=== PATIENT | female | born 1950 | race Caucasian/White ===

== ENCOUNTER → 2016-10-13 | Outpatient (CLI) | payer OTHER | LOC: HYPER 07:00 | DX: I87.2 Venous insufficiency (chronic) (peripheral) (principal); L97.311 Non-pressure chronic ulcer of right ankle limited to breakdown of skin; L97.321 Non-pressure chronic ulcer of left ankle limited to breakdown of skin; L03.90 Cellulitis, unspecified; L30.9 Dermatitis, unspecified; J45.909 Unspecified asthma, uncomplicated; R60.9 Edema, unspecified; M19.90 Unspecified osteoarthritis, unspecified site; F41.9 Anxiety disorder, unspecified; F32.9 Major depressive disorder, single episode, unspecified; Z87.891 Personal history of nicotine dependence ==

== ENCOUNTER → 2017-12-15 | Outpatient (CLI) | payer OTHER | LOC: HYPER 10-19 11:36 | DX: L97.811 Non-pressure chronic ulcer of other part of right lower leg limited to breakdown of skin (principal); L03.90 Cellulitis, unspecified; L30.9 Dermatitis, unspecified; I87.2 Venous insufficiency (chronic) (peripheral); M19.90 Unspecified osteoarthritis, unspecified site; Q05.9 Spina bifida, unspecified; J45.909 Unspecified asthma, uncomplicated; F41.9 Anxiety disorder, unspecified; Z87.891 Personal history of nicotine dependence ==

== ENCOUNTER → 2018-01-12 | Outpatient (CLI) | payer OTHER | LOC: HYPER 07:04 | DX: L97.821 Non-pressure chronic ulcer of other part of left lower leg limited to breakdown of skin (principal); I87.2 Venous insufficiency (chronic) (peripheral); L30.9 Dermatitis, unspecified; L40.50 Arthropathic psoriasis, unspecified; M19.90 Unspecified osteoarthritis, unspecified site; Q05.9 Spina bifida, unspecified; J45.909 Unspecified asthma, uncomplicated; F41.9 Anxiety disorder, unspecified; F32.9 Major depressive disorder, single episode, unspecified; Z87.891 Personal history of nicotine dependence ==

== ENCOUNTER → 2018-04-03 | Outpatient (CLI) | payer OTHER | LOC: HYPER 06:57 | DX: L97.821 Non-pressure chronic ulcer of other part of left lower leg limited to breakdown of skin (principal); R21 Rash and other nonspecific skin eruption; L03.116 Cellulitis of left lower limb; L30.9 Dermatitis, unspecified; L40.50 Arthropathic psoriasis, unspecified; I87.2 Venous insufficiency (chronic) (peripheral); G47.33 Obstructive sleep apnea (adult) (pediatric); G71.00 Muscular dystrophy, unspecified; J45.909 Unspecified asthma, uncomplicated; Q05.9 Spina bifida, unspecified; M19.90 Unspecified osteoarthritis, unspecified site; K21.9 Gastro-esophageal reflux disease without esophagitis; F41.9 Anxiety disorder, unspecified; F32.9 Major depressive disorder, single episode, unspecified; Z87.891 Personal history of nicotine dependence; Z96.643 Presence of artificial hip joint, bilateral ==

== ENCOUNTER → 2018-10-23 | Outpatient (CLI) | payer OTHER | LOC: HYPER 06:41 | DX: L97.811 Non-pressure chronic ulcer of other part of right lower leg limited to breakdown of skin (principal); I87.2 Venous insufficiency (chronic) (peripheral); L03.116 Cellulitis of left lower limb; L30.9 Dermatitis, unspecified; G47.30 Sleep apnea, unspecified; M19.90 Unspecified osteoarthritis, unspecified site; R21 Rash and other nonspecific skin eruption; Q05.9 Spina bifida, unspecified; J45.909 Unspecified asthma, uncomplicated; F41.9 Anxiety disorder, unspecified; F32.9 Major depressive disorder, single episode, unspecified; Z87.891 Personal history of nicotine dependence ==

== ENCOUNTER → 2019-04-19 | Outpatient (CLI) | payer OTHER | LOC: HYPER 10-31 07:02 | DX: L97.821 Non-pressure chronic ulcer of other part of left lower leg limited to breakdown of skin (principal); I87.2 Venous insufficiency (chronic) (peripheral); R21 Rash and other nonspecific skin eruption; L40.8 Other psoriasis; L03.116 Cellulitis of left lower limb; L30.9 Dermatitis, unspecified; G47.30 Sleep apnea, unspecified; D64.9 Anemia, unspecified; M19.90 Unspecified osteoarthritis, unspecified site; Q05.9 Spina bifida, unspecified; J45.909 Unspecified asthma, uncomplicated; F41.9 Anxiety disorder, unspecified; F32.9 Major depressive disorder, single episode, unspecified; Z87.891 Personal history of nicotine dependence ==

== ENCOUNTER → 2019-05-17 | Outpatient (CLI) | payer OTHER | LOC: HYPER 07:17 | DX: S81.802D Unspecified open wound, left lower leg, subsequent encounter (principal); L40.8 Other psoriasis; L03.116 Cellulitis of left lower limb; L30.9 Dermatitis, unspecified; I87.2 Venous insufficiency (chronic) (peripheral); Q05.9 Spina bifida, unspecified; R21 Rash and other nonspecific skin eruption; J45.909 Unspecified asthma, uncomplicated; G47.33 Obstructive sleep apnea (adult) (pediatric); M19.90 Unspecified osteoarthritis, unspecified site; F41.9 Anxiety disorder, unspecified; F32.9 Major depressive disorder, single episode, unspecified; Z87.891 Personal history of nicotine dependence; X58.XXXD Exposure to other specified factors, subsequent encounter ==

== ENCOUNTER → 2019-06-12 | Outpatient (CLI) | payer OTHER | LOC: HYPER 06-07 16:51 | DX: L97.822 Non-pressure chronic ulcer of other part of left lower leg with fat layer exposed (principal); L97.321 Non-pressure chronic ulcer of left ankle limited to breakdown of skin; I87.2 Venous insufficiency (chronic) (peripheral); L03.116 Cellulitis of left lower limb; L30.9 Dermatitis, unspecified; L40.50 Arthropathic psoriasis, unspecified; K58.9 Irritable bowel syndrome, unspecified; F32.9 Major depressive disorder, single episode, unspecified; G47.33 Obstructive sleep apnea (adult) (pediatric); J45.909 Unspecified asthma, uncomplicated; F41.9 Anxiety disorder, unspecified; Z96.643 Presence of artificial hip joint, bilateral; Z87.891 Personal history of nicotine dependence ==

== ENCOUNTER → 2019-06-21 | Outpatient (CLI) | payer OTHER | LOC: HYPER 14:19 | DX: L97.822 Non-pressure chronic ulcer of other part of left lower leg with fat layer exposed (principal); L03.116 Cellulitis of left lower limb; S81.802D Unspecified open wound, left lower leg, subsequent encounter; I87.2 Venous insufficiency (chronic) (peripheral); L40.8 Other psoriasis; L30.9 Dermatitis, unspecified; L40.50 Arthropathic psoriasis, unspecified; R60.0 Localized edema; G47.33 Obstructive sleep apnea (adult) (pediatric); G71.00 Muscular dystrophy, unspecified; Q05.9 Spina bifida, unspecified; J45.909 Unspecified asthma, uncomplicated; M48.00 Spinal stenosis, site unspecified; K21.9 Gastro-esophageal reflux disease without esophagitis; F32.9 Major depressive disorder, single episode, unspecified; F41.9 Anxiety disorder, unspecified; Z87.891 Personal history of nicotine dependence; X58.XXXD Exposure to other specified factors, subsequent encounter ==

== ENCOUNTER → 2019-07-03 | Outpatient (CLI) | payer OTHER | LOC: HYPER 11:37 | DX: L97.822 Non-pressure chronic ulcer of other part of left lower leg with fat layer exposed (principal); I87.2 Venous insufficiency (chronic) (peripheral); L30.9 Dermatitis, unspecified; J45.909 Unspecified asthma, uncomplicated; M19.90 Unspecified osteoarthritis, unspecified site; L40.50 Arthropathic psoriasis, unspecified; F32.9 Major depressive disorder, single episode, unspecified; F41.9 Anxiety disorder, unspecified; Z87.891 Personal history of nicotine dependence; Z79.82 Long term (current) use of aspirin ==

== ENCOUNTER → 2019-08-09 | Outpatient (CLI) | payer OTHER | LOC: HYPER 11:57 | DX: L97.822 Non-pressure chronic ulcer of other part of left lower leg with fat layer exposed (principal); L03.116 Cellulitis of left lower limb; S81.802D Unspecified open wound, left lower leg, subsequent encounter; I87.2 Venous insufficiency (chronic) (peripheral); L40.50 Arthropathic psoriasis, unspecified; L30.9 Dermatitis, unspecified; M51.36 Other intervertebral disc degeneration, lumbar region; J45.909 Unspecified asthma, uncomplicated; M48.00 Spinal stenosis, site unspecified; K58.9 Irritable bowel syndrome, unspecified; G47.33 Obstructive sleep apnea (adult) (pediatric); Q05.9 Spina bifida, unspecified; F41.9 Anxiety disorder, unspecified; F32.9 Major depressive disorder, single episode, unspecified; Z85.831 Personal history of malignant neoplasm of soft tissue; Z79.82 Long term (current) use of aspirin; Z96.643 Presence of artificial hip joint, bilateral; Z87.891 Personal history of nicotine dependence; X58.XXXD Exposure to other specified factors, subsequent encounter ==

== ENCOUNTER 2020-05-29 19:03 | Inpatient (IN) | payer OTHER ==
[~2020-05-29] VITALS: Ht 167.6 cm; Wt 62.5 kg
--- NOTE | ~2020-05-29 | HC ---
[facility] [place] [address] CONSULTATION Name: ROSE TRINIDAD Room #: 462-P ADM IN M.R.#: [id number] Admission: 05/29/20 Attend Phys: Karen Jeong MD Discharge: Date of : 52 Report #: [id number] THIS REPORT FOR: cc: Benny Adame MD, Steven E. MD Khosla,aJyden Sheffield MD ~ DATE OF SERVICE: 05/30/2020 HISTORY OF PRESENT ILLNESS: This is a 69-year-old female patient who was evaluated by me because of altered mental status and ambulation difficulty. The patient's gives a history that the patient started having short-term memory loss. He is not sure about the duration, but it started several months or maybe a few years ago. She saw a neurologist at [facility]. He does not believe that she had an MRI, but she was recommended to have neuropsychological testing, but the patient did not go for neuropsychological testing. He believes about a few days ago, the patient started deteriorating. Her memory has gone down. She has difficulty with ambulation. Later on, her strength looks unremarkable, but she appeared to have pretty significant difficulty ambulating according to the . REVIEW OF SYSTEMS: Indicate she is a mild diabetic. She has a chronic pain syndrome. She apparently has a history of neuropathy and neurogenic bladder. She has been falling down. did not think that this patient had any new eye, ENT, cardiac, respiratory, , musculoskeletal, constitutional, dermatological, hematological, psychiatric, throat, allergic symptom associated with present symptomatology. PAST MEDICAL HISTORY: Positive for memory problem, which is going on for some time. FAMILY HISTORY: Unremarkable. SOCIAL HISTORY: The tells me that she was never a smoker or drinker. She does not know what month it is. She finally said it is [place]. She could not name of the president. Cranial nerve examination is very difficult to carry out because of her confusion, but she does not appear to be showing any abnormality the best I can tell. She moves all four extremities and when she gives a good effort, it looks like she has a good strength. She keeps moving both lower extremities and she will not lay still. Her reflexes are absent. Sensory system examination was impossible because she could not cooperate. There is no meningeal sign. I could not look at the fundus because she will not cooperate. Pulses are somewhat difficult to feel. Reflexes are absent in the lower extremities. Sensory system examination was not possible because of the patient's cooperation. Similarly cerebellar signs could not be checked because [facility] [address] [place] [address] CONSULTATION Name: ROES TRINIDAD Room #: 462-P [facility] IN M.R.#: [id number] Admission: 05/29/20 Attend Phys: Karen Jeong MD Discharge: Date of : 51 Report #: [id number] of her cooperation. Cardiac examinations appear unremarkable and there does not appear to be any evidence of atrial fibrillation, no respiratory difficulty was noticed. She is moderately built individual who does not have any dysmorphic features of eyes, ears and face. There is no carotid bruit. IMPRESSION: Pretty difficult to form in this patient. It looks like she was probably having dementia for a long time when she got decompensated. It is not sure why she got decompensated. She does not appear to have any urinary tract infection, but she does have ketones there. I think her nutrition will be poor, but her protein if anything is high. RECOMMENDATIONS: 1. Continue to correct electrolyte imbalances, especially her potassium and magnesium. 2. She does have increased bilirubin, although only slightly, so I will check the ammonia level. 3. In spite of nutrition her protein is 8.5, total protein and because of that, I am going to check protein electrophoresis. 4. We will check a vitamin B12 level. 5. I will get an EEG done. 6. I do not know whether she will able to cooperate with MRI or not, but we will see if we can get an MRI to see if she decompensated because of anything which could have happened intracranially. All of it was discussed with the patient's and he wants to follow this plan. Dr. Kerns will follow this patient with you tomorrow. Thank you very much for this referral. By: [id number] Jayden Decker MD /nt
--- NOTE | ~2020-05-29 | EEG ---
[facility] [place] [address] ELECTROENCEPHALOGRAM Name: ROSE TRINIDAD Room #: 462-P ADM IN M.R.#: [id number] Admission: 05/29/20 Attend Phys: Karen Jeong MD Discharge: Date of : 51 Report #: [id number] THIS REPORT FOR: //name// DATE OF SERVICE: 05/30/2020 This patient is being evaluated for altered mental status. EEG was done by placing the electrode by standard 10-20 system of electrode placement. Both referential and sequential montages were used for recording. Background activity in this patient's EEG is about 7-8 Hz and 30 microvolt. This is a poorly formed background activity. The patient appeared to be drowsy during part of this EEG and that is associated with bilateral slowing and vertex sharp waves. Photic stimulation is unremarkable. Throughout the record, no active epileptiform activity was noted. IMPRESSION: This patient's EEG is intermixed with theta range slowing on both sides. That is a nonspecific finding, which can occur with dementia, encephalopathy, effect of psychotropic medication, etc. Clinical correlation is recommended. By: [id number] Jayden Decker MD /nt
[2020-05-29 19:10] VITALS: BP 141/86
[2020-05-29] MEDS ORDERED: METFORMIN HCL500 M3 PO (19:17)
[2020-05-29] MEDS ORDERED: GRALISE300 MG PO (19:18)
[2020-05-29] MEDS ORDERED: METHOCARBAMOL500 M2 PO (19:18)
[2020-05-29] MEDS ORDERED: HYDROXYZINE HCL25 M2 PO (19:19)
[2020-05-29] MEDS ORDERED: ALBUTEROL SULFAT4 MG PO (19:19)
[2020-05-29] MEDS ORDERED: ZANAFLEX2 M1 PO (19:20)
[2020-05-29] MEDS ORDERED: METHADONE10 MG/1 M2 PO (19:20)
[2020-05-29] MEDS ORDERED: FOLIC ACID1 MG PO (19:21)
[2020-05-29] MEDS ORDERED: METHOTREXATE 22.5 M1 PO (19:21)
[2020-05-29 20:09] LABS: HEMATOCRIT 46.4 % (37.0-47.0); HEMOGLOBIN 15.1 gm/dL (12.0-15.0); MCHC 32.4 g/dL (28.0-37.0); MCV 89.4 fL (80.0-100.0); RBC 5.19 mil/uL (4.20-5.00); WBC 9.7 thou/uL (4.0-11.0)
[2020-05-29 20:11] LABS: CALCIUM 9.8 mg/dL (8.5-10.1); CREATININE 0.8 mg/dL (0.6-1.0); POTASSIUM 3.5 mmol/L (3.5-5.1)
[2020-05-29 20:19] LABS: ALBUMIN 4.8 g/dL (3.4-5.0); DIRECT BILIRUBIN 0.3 mg/dL (<0.1-0.2); TOTAL BILIRUBIN 1.1 mg/dL (0.2-1.0); TOTAL PROTEIN 8.5 g/dL (6.4-8.2); TROPONIN-I 0.14 ng/mL (<0.06)
[2020-05-29 20:23] LABS: SALICYLATE 3.1 mg/dL (2.8-20.0)
[2020-05-29 21:03] LABS: URINE BILIRUBIN NEGATIVE (Negative); URINE BLOOD 2+ (Negative); URINE CLARITY CLEAR; URINE COLOR YELLOW; URINE GLUCOSE-RANDOM* NEGATIVE (Negative); URINE KETONES 3+ (Negative); URINE LEUKOCYTES-REFLEX NEGATIVE (Negative); URINE NITRITE-REFLEX NEGATIVE (Negative); URINE PROTEIN (DIPSTICK) 3+ (Negative); URINE SPECIFIC GRAVITY 1.025 (1.005-1.035); URINE UROBILINOGEN 0.2 E.U./dl (0.2-1.0)
[2020-05-29 21:08] LABS: URINE REDUCING SUBSTANCE NEGATIVE
[2020-05-29 21:16] LABS: CASTS None Seen /LPF (None Seen); SQUAMOUS 0-3 Few /LPF (0-3); URINE RBC >20 Many /HPF (0-2)
[2020-05-29 21:17] LABS: BACTERIA-REFLEX 1-9 Few /HPF (None Seen); CRYSTALS None Seen /LPF (None Seen); URINE WBC-REFLEX None Seen /HPF (0-5)
[2020-05-29 23:07] VITALS: BP 136/94
--- NOTE | 2020-05-29 23:20 | NUR ---
CALLED FOR REPORT AT THIS TIME. THIS NURSE WAS TOLD BY LALITHA ON 4W THAT THE NURSE WOULD CALL ME BACK TO GET REPORT
[2020-05-30] VITALS (7 sets, daily range): BP systolic 131–219; BP diastolic 49–105
--- NOTE | 2020-05-30 03:56 | NUR ---
Pt admitted at 0030 from ED via cart. A/OX1-2,pleasantly confused but cooperative with cares. AX1 with transfers. Assisted to BSC with moderate assist. Wound care/pictures to left lilly done w/o any problems. Medicated for generalized pain with relief reported. IVF infusing w/o any problems via RAC. Fall precautions implemented,pt has a tendancy of lying upside down in bed and needs frequent monitoring. Resting quietly at this time,will continue to monitor pt.
--- NOTE | 2020-05-30 08:52 | EKG ---
[place] [address] [facility] [place] [address] ELECTROCARDIOGRAM REPORT Name: ROSE TRINIDAD Room #: 462-P ADM IN M.R.#: [id number] Admission: 05/29/20 Attend Phys: Karen Jeong MD Discharge: Date of : 51 Report #: [id number] [facility] ED Test Date: 2020-05-29 Test Time: 19:48:54 Pat Name: ROSE TRINIDAD Department: Room: 462 Gender: F Early Childhood Worker: martha : 1950 Requested By: Baldo Melton Order Number: [id number] MD: Abe Zafar Measurements Intervals [place] Rate: 80 P: 50 W[place]: 146 QRS: 22 QRSD: 96 T: 41 QT: 485 QTc: 560 Interpretive Statements Sinus rhythm Ventricular premature complex Probable left ventricular hypertrophy Prolonged QT interval Compared to ECG 02/08/2005 16:28:12 Ventricular premature complex(es) now present Prolonged QT interval now present Electronically Signed On 05-30-2020 8:52:16 DISPENSARY ATTENDANT by Abe Zafar [email or web address] <ELECTRONICALLY SIGNED> By: Abe Zafar MD, MERGED WITH [facility] [id number] Abe Zafar MD, FAC /EPI
--- NOTE | 2020-05-30 10:11 | NUR ---
ASSUMED CARE AT 0700. PT IS A&O X1. PT CAN STILL FOLLOW COMMANDS. WHEN I FIRST CAME TO PT, I TOOK PT VS. BLOOD PRESSURE WAS EXTREMELY HIGH (197'S) AND CONTACTED DR. BURROWS IMMEDIATELY. DR. BURROWS ORDERED METOPROLOL AND WAS GIVEN AT 9 AM. RECHECKED BLOOD PRESSURE AT 10 AM : BLOOD PRESSURE IS ELEVATED TO 219/109 WITH PULSE 65. CONTACTED AND TEXTED MARKOS ABOUT THIS. STILL WAITING FOR ANSWER. PT DENIES CHEST PAIN, SOA, PAIN, N/V/D. PT HAS POOR DIET. REDNESS ON BOTH LEGS AND WOUND IS ON LEFT DE LA PAZ. NO SIGNS OF DRAINAGE. BSG WNL. METFORMIN WAS GIVEN TO PT. PT WAS ABLE TO TAKE SMALL BITES OF BREAKFAST. IV IS INTACT AND SHOWS NO REDNESS OR SWELLING. PT CAN SWALLOW PILLS WHOLE. PT IS CONSTANTLY TRYING TO GET OUT OF BED. FREQ CHECKING ON PATIENT. BED ALARM IS ON. FALL PRECAUTION. CALL LIGHT WITHIN REACH. WILL CONTINUE TO MONITOR.
[2020-05-30 11:01] LABS: HEMOGLOBIN 14.1 gm/dL (12.0-15.0); MCH 28.7 pg (26.0-34.0); MCHC 31.9 g/dL (28.0-37.0); MCV 89.8 fL (80.0-100.0); RBC 4.91 mil/uL (4.20-5.00); WBC 10.9 thou/uL (4.0-11.0)
[2020-05-30 11:10] LABS: CALCIUM 9.3 mg/dL (8.5-10.1); CREATININE 0.7 mg/dL (0.6-1.0)
[2020-05-30 11:14] LABS: POTASSIUM 2.8 mmol/L (3.5-5.1)
--- NOTE | 2020-05-31 04:35 | NUR ---
ASSUMED CARE OF PT AT 1900. PT IS A/O X2 AND IS UP WITH ASSISTANCE TO THE BSC. PT DENIES ANY C/O PAIN OR DISCOMFORT. IV REPLACED TO LEFT WRIST. HEEL SHAVER NOTIFIED THAT POTASSIUM AND MAGNESIUM LOW. ORDERS GIVEN TO REPLACE BOTH GIVEN AND AN ORDER FOR LAB TO REDRAW THIS AM TO ENSURE LEVEL IS WNL. BLOOD SUGAR AT HS WAS WNL. REMAINS ON ROOM AIR. NO BM THIS SHIFT. PT HAS NOT SLEPT MUCH. AT THIS TIME SHE IS SITTING UP ON HER BED WATCHING TV. FALL PRECAUTIONS IMPLEMENTED, CALL LIGHT IS WITHIN REACH. WILL CONTINUE TO MONITOR.
[2020-05-31 04:57] LABS: CALCIUM 8.7 mg/dL (8.5-10.1); CREATININE 0.8 mg/dL (0.6-1.0); TROPONIN-I 0.09 ng/mL (<0.06)
[2020-05-31 05:01] LABS: POTASSIUM 2.7 mmol/L (3.5-5.1)
[2020-05-31 08:55] VITALS: BP 138/79
[2020-05-31 10:04] LABS: ABSOLUTE NEUTROPHILS 5.9 thou/uL (1.4-8.2); BASOPHILS 0.3 % (0.0-2.0); EOSINOPHILS 0.3 % (0.0-3.0); HEMOGLOBIN 12.6 gm/dL (12.0-15.0); LYMPHOCYTES 24.1 % (24.0-44.0); MCH 28.6 pg (26.0-34.0); MCHC 31.5 g/dL (28.0-37.0); MCV 90.6 fL (80.0-100.0); MONOCYTES 13.7 % (1.0-8.0); PLATELET COUNT 429 thou/uL (150-400); POLYS 61.6 % (36.0-66.0); RBC 4.42 mil/uL (4.20-5.00); RDW 21.6 % (10.5-14.5); WBC 9.6 thou/uL (4.0-11.0)
[2020-05-31 10:33] LABS: ALBUMIN 4.1 g/dL (3.4-5.0); CALCIUM 9.3 mg/dL (8.5-10.1); POTASSIUM 3.6 mmol/L (3.5-5.1); TOTAL BILIRUBIN 0.7 mg/dL (0.2-1.0); TOTAL PROTEIN 6.8 g/dL (6.4-8.2)
[2020-05-31 10:43] LABS: CHOLESTEROL 220 mg/dL (<200); HDL CHOLESTEROL 57 mg/dL (>40); LDL CHOLESTEROL 141 mg/dL (<100); TC:HDL 3.9 Ratio (Not establshd); TRIGLYCERIDE 111 mg/dL (<150); VLDL 22 mg/dL (<40)
[2020-05-31 10:49] LABS: ANISOCYTOSIS 2+; OVALOCYTES 1+; TARGET CELLS FEW
--- NOTE | 2020-05-31 11:18 | EKG ---
[address] [place] [address] ELECTROCARDIOGRAM REPORT Name: ROSE TRINIDAD Room #: 462-P ADM IN M.R.#: [id number] Admission: 05/29/20 Attend Phys: Karen Jeong MD Discharge: Date of : 51 Report #: [id number] [facility] Test Date: 2020-05-31 Test Time: 08:59:09 Pat Name: ROSE TRINIDAD Department: Room: 462 Gender: F Rag Washer: ELO : 1950 Requested By: Jazmine Nagel Order Number: [id number] : Abe Zafar Measurements Intervals [place] Rate: 65 P: 41 [place]: 146 QRS: -3 QRSD: 96 T: 31 QT: 458 QTc: 477 Interpretive Statements Sinus rhythm Compared to ECG 05/29/2020 19:48:54 Ventricular premature complex(es) no longer present Prolonged QT interval no longer present Electronically Signed On 05-31-2020 11:18:15 WATER MANGLE TENDER by Abe Zafar [email or web address] <ELECTRONICALLY SIGNED> By: Abe Zafar MD, [facility] 05/31/20 1118 0859 Abe Zafar MD, FACC /EPI
[2020-05-31 16:08] VITALS: BP 113/73
[2020-05-31 19:38] VITALS: BP 151/95
--- NOTE | 2020-06-01 02:46 | NUR ---
PT CARE ASSUMED WITH PT IN BED WATCHING TV WITH 1:1 STAFF OR SITTER IN ROOM.PT IS ALERT AND VERY CONFUSE.PT PULLS OFF IV AND REMOVED WOUND DRESSING AND GETS UP AND REFUSING ASSISTANCE.PT TAKES MEDIACTION WHOLE WITH THIN LIQUID WITH NO ISSUES .PT IS ACCUCHECK ACHS.PT IS ON RA.1:1 STAFF WALKED PT IN [place]AY WITH GAIT BELT AND WALKER.FALL PRECAUTION AND BED ALARM ON.WILL CONTINUE TO MONITOR
[2020-06-01 06:20] LABS: BASOPHILS 0.5 % (0.0-2.0); EOSINOPHILS 0.2 % (0.0-3.0); HEMATOCRIT 35.9 % (37.0-47.0); HEMOGLOBIN 11.4 gm/dL (12.0-15.0); MCH 29.2 pg (26.0-34.0); MCHC 31.9 g/dL (28.0-37.0); MCV 91.6 fL (80.0-100.0); MONOCYTES 13.6 % (1.0-8.0); POLYS 65.7 % (36.0-66.0); RBC 3.92 mil/uL (4.20-5.00); WBC 7.6 thou/uL (4.0-11.0)
[2020-06-01 06:29] LABS: PLATELET COUNT 352 thou/uL (150-400)
[2020-06-01 06:39] LABS: ALBUMIN 3.5 g/dL (3.4-5.0); CALCIUM 9.2 mg/dL (8.5-10.1); CREATININE 0.8 mg/dL (0.6-1.0); MAGNESIUM 1.9 mg/dL (1.8-2.4); PHOSPHORUS 2.9 mg/dL (2.5-4.9); POTASSIUM 3.8 mmol/L (3.5-5.1); TOTAL BILIRUBIN 0.3 mg/dL (0.2-1.0)
--- NOTE | 2020-06-01 07:18 | 2DMMODE ---
[facility] [place] [address] 2 D/M-MODE ECHOCARDIOGRAM Name: ROSE TRINIDAD Room #: 462-P ADM IN M.R.#: [id number] Admission: 05/29/20 Attend Phys: Karen Jeong MD Discharge: Date of : 51 Report #: [id number] THIS REPORT FOR: cc: Benny Adame MD, Steven E. MD Santiago, Patrick MD [facility] ~ APPROVED REPORT Study performed: 05/31/2020 13:20:47 EXAM: Comprehensive 2D, Doppler, and color-flow Echocardiogram Patient Location: Bedside Room #: 462 Status: on-call BSA: 1.68 HR: 72 bpm BP: 138/74 mmHg Rhythm: NSR Other Information Study Quality: Adequate Risk Factors: Cardiac Risk Factors: HTN, DM Indications CAD Elevated Troponin Weakness 2D Dimensions IVSd: 12.41 (7-11mm) LVOT Diam: 19.00 (18-24mm) LVDd: 42.15 mm PWd: 12.76 (7-11mm) Ascending Ao: 24.87 (22-36mm) LVDs: 30.25 (25-40mm) Aortic Root: 26.14 mm LV Single Plane 4CH: 48.11 % LV Single Plane 2CH: 53.17 % Biplane EF: 52.1 % Volumes Left Atrial Volume (Systole) Single Plane 4CH: 84.32 mL Single Plane 2CH: 51.52 mL LA ESV Index: 43.00 mL/m2 [facility] [address] [place] [address] 2 D/M-MODE ECHOCARDIOGRAM Name: ROSE TRINIDAD Room #: 462-P ADM IN .R.#: [id number] Admission: 05/29/20 Attend Phys: Abimael Ha Discharge: Date of : 51 Report #: [id number] Aortic Valve AoV Peak Deniz.: 2.26 m/s AO Peak Gr.: 20.39 mmHg LVOT Max P.89 mmHg AO Mean Gr.: 11.28 mmHg LVOT Mean P.08 mmHg AO V2 Mean: 1.61 m/s LVOT Max V: 1.01 m/s AO V2 VTI: 45.14 cm LVOT Mean V: 0.68 m/s ISA (VTI): 1.35 cm2 LVOT V1 VTI: 20.96 cm ISA Vmax: 1.30 cm2 SV (LVOT): 61.08 mL Mitral Valve E/A Ratio: 0.8 MV Decel. Time: 361.60 ms MV E Max Deniz.: 0.72 m/s MV A Deniz.: 0.96 m/s MV PHT: 104.86 ms IVRT: 79.58 ms TDI E/Lateral E': 12.00 E/Medial E': 12.00 Medial E' Deniz.: 0.06 m/s Lateral E' Deniz.: 0.06 m/s Pulmonary Valve PV Peak Deniz.: 1.10 m/s PV Peak Gr.: 4.85 mmHg Pulmonary Vein P Vein S: 0.40 m/s P Vein A: 0.29 m/s P Vein D: 0.64 m/s P Vein A Dur.: 107.3 msec P Vein S/D Ratio: 0.63 Left Ventricle The left ventricle is normal size. There is normal LV segmental wall motion. There is normal left ventricular wall thickness. Left ventricular systolic function is normal. The left ventricular ejection fraction is within the normal range. LVEF is 50-55%. Mild diastolic dysfunction is present (impaired relaxation pattern). Right Ventricle The right ventricle is normal size. The right ventricular systolic function is normal. Atria Left atrium is moderately dilated. The right atrium size is [facility] [address] [place] [address] 2 D/M-MODE ECHOCARDIOGRAM Name: ROSE TRINIDAD Room #: 462-P [facility]#: [id number] Admission: 05/29/20 Attend Phys: Abimael Ha Discharge: Date of : 51 Report #: [id number] normal. Aortic Valve Aortic valve is miildly calcified. No aortic regurgitation is present. Peak aortic valve pressure gradeint is 20 mmHg and the mean pressure gradient is 11 mmHg.Calculated aortic valve area is 1.4 cm2. Mild aortic stenosis. Mitral Valve The mitral valve is normal in structure. Trace mitral regurgitation. No evidence of mitral valve stenosis. Tricuspid Valve The tricuspid valve is normal in structure. Trace tricuspid regurgitation. Unable to assess PA pressure. Pulmonic Valve The pulmonary valve is normal in structure. Mild pulmonic regurgitation. Great Vessels The aortic root is normal in size. The ascending aorta is normal in size. IVC is not well visualized. Pericardium There is no pericardial effusion. <Conclusion> Normal left ventricle size/wall thickness Ejection fraction 50-55% Normal right heart size/function Color-flow Doppler study performed at the aortic/mitral/tricuspid/pulmonary valve Aortic valve mildly calcified Mild aortic valve stenosis, mean gradient of 11 mmHg Aortic valve area estimated 1.4 cm Normal mitral valve structure and function Trace of tricuspid valve insufficiency, unable to assess PA systolic pressure No pericardial effusion <ELECTRONICALLY SIGNED> By: Abe Zafar MD, FACC 06/01/20717 7 7 Abe Zafar MD, FACC /INF
[2020-06-01 08:10] VITALS: BP 140/58
--- NOTE | 2020-06-01 12:17 | HC ---
[facility] [place] [address] CONSULTATION Name: ROSE TRINIDAD Room #: 462-P ADM IN M.R.#: [id number] Admission: 05/29/20 Attend Phys: Karen Jeong MD Discharge: Date of : 51 Report #: [id number] THIS REPORT FOR: cc: Benny Adame MD, Steven E. MD Jetmore, Allen B. MD ~ DATE OF SERVICE: 05/31/2020 WOUND CARE CONSULTATION NOTE LOCATION: [facility] REASON FOR CONSULTATION: Left leg ulcer. HISTORY OF PRESENT ILLNESS: The patient is a 69-year-old woman with a known history of diabetes and peripheral neuropathy who is admitted for altered mental status. At home, she is under the care of her , who noted that she was lethargic, weak, had a poor appetite and was confused. The patient has a history of chronic pain. The patient was noted to have an ulcer of her left leg and I am consulted. The patient denies being seen in any Wound Care Clinics and denies the leg ulcer having been there for very long. PAST MEDICAL HISTORY: Chronic pain, diabetes, arthritis, peripheral neuropathy, neurogenic bowel and bladder, coronary artery disease, history of frequent falls, muscular dystrophy, coronary artery disease. PAST SURGICAL HISTORY: Tonsillectomy, cholecystectomy, bilateral hip replacement, appendectomy, total hysterectomy. SOCIAL HISTORY: The patient lives at home with her , uses a walker for ambulation. ALLERGIES: CEPHALOSPORINS, IODINE, LEVOFLOXACIN, LIDOCAINE. HOME MEDICATIONS: Include metformin, gabapentin, methocarbamol, hydroxyzine, albuterol, methadone, Zanaflex, methotrexate. PHYSICAL EXAMINATION: GENERAL: Shows a frail-appearing, elderly woman who is alert. She seems appropriate. HEENT: Mucous membranes are moist. NECK: Supple. The patient is able to get up from a chair into the bed. ABDOMEN: Soft and scaphoid. EXTREMITIES: Shows a well-demarcated ulcer of the left lower pretibial leg measuring approximately 3 cm x 2.5 cm x 3 mm deep very well demarcated with a [facility] [address] [place] [address] CONSULTATION Name: ROSE TRINIDAD Room #: 462-P ADM IN M.R.#: [id number] Admission: 05/29/20 Attend Phys: Karen Jeong MD Discharge: Date of : 51 Report #: [id number] chronic stable granulation base. Wound appears chronic. No overt evidence of venous stasis. Palpable left dorsalis pedis pulse, nonpalpable right dorsalis pedis pulse. Ulcer appears possibly mixed venous and arterial. The patient denies any trauma to the leg. IMPRESSION: 1. Diabetes mellitus type 2 with peripheral neuropathy. 2. Diabetes with left leg ulcer. 3. Altered mental status. 4. Coronary artery disease. 5. Some evidence of peripheral vascular disease with diminished right pedal pulse. 6. Diabetic peripheral neuropathy. 6. History of neurogenic bowel and bladder. PLAN: We will do a simple Optifoam dressing to the left leg wrapped with a Kerlix. Order arterial Dopplers of the legs. Ulcer appears chronic, maybe mixed etiology, arterial versus venous in a diabetic. Wound care team will follow, possible biopsy of the leg ulcer, although does not appear neoplastic. <ELECTRONICALLY SIGNED> By: Leo Lord MD 06/01/20 1217 1048 1140 Leo Lord MD /nt
--- NOTE | 2020-06-01 13:26 | NUR ---
ASSUMED CARE AT 0700. PT IS A& 1. PT CAN REMEMBER WHO THE PRESIDENT IS. PT WAS VERY CONFUSED THIS MORNING. 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 SHE WANTED TO SIT IN THE NURSING STATION AFTER MULTIPLE TIMES BEING ASKED TO GO BACK TO HER ROOM. PT REFUSED. EVENTUALLY PT WENT BACK TO THE ROOM AFTER WAS TOLD THAT WE WOULD CALL SECURITY. PT PULLED OUT IV DURING THE NIGHT SO THERE IS NO IV ON PT. PT TENDS TO PICK ON THINGS SUCH WOUND ON LEFT LEG AND THE IV. NO IV MEDS CURRENTLY. WOUND CARE ON LEFT LEG WAS CHANGED. PT DENIES ANY PAIN. FALL PRECAUTION. CALL LIGHT WITHIN REACH. SITTER WAS THERE THIS AM WHEN CAME, THEN SITTER HAS LEFT. WHEN TRYING TO GIVE AFTERNOON MEDS, PT WAS VERY SEDATED. PT HAS NO DENUTRES AND AT RISK FOR ASPIRATION IF I WAS TO GIVE HER MEDICATION. CURRENTLY DID NOT GIVE PT MEDS. SPOKE TO , TIFFANIE, AND HE STATED THAT THIS HAPPENS AT HOME OFTEN AND GAVE HIM UPDATE WELL. PT DENIES N/V/D. PT HAS NO EDME. ANNA GARCIAL.
[2020-06-01 18:39] VITALS: BP 92/46
--- NOTE | 2020-06-02 02:42 | NUR ---
PT CARE ASSUMED WITH PT IN ROOM AND IN BED WITH SITTER .PT IS ALERT TO SELF.PT IS CONFUSE AND IMPULSIVE.PT HAD A LARGE FORMED BM THIS SHIFT.PT IS ACCUCHECK ACHS WITH LOW SSI.PT SLEPT MOST OF THE SHIFT TILL THIS POINT.WOUND DRESSING IN LT LE D/C/I.WILL CONTINUE TO MONITOR PER POC
[2020-06-02 04:44] VITALS: BP 116/63
[2020-06-02 08:28] VITALS: BP 126/51
[2020-06-02 14:06] LABS: GLOBULIN TOTAL 2.5 g/dL (2.2-3.9); M-SPIKE Not Observed g/dL (Not Observed)
--- NOTE | 2020-06-02 16:33 | NUR ---
PT ADMITTED RELATED TO AMS; ELECTROLYTE IMBALANCE; ELEVATED TROPONIN. CM REVIEWED CHART AND SPOKE WITH CARE TEAM. CM ATTEMPTED PT TO PT'S SPOUSE THIS DAY WITH NO ANSWER. IT APPEARES THAT PT RESIDES IN A HOUSE WITH SPOUSE WITH 8+ 4 STEPS TO ENTER WITH BL HANDRAILS. PT HAS FWW, 4WW, AND CANE TO ASSIST WITH MOBILITY. PT, OT, AND ST ASSESSING. CM FOLLOWING REGARDING DC PLANNING. PT HAD MRI TODAY AND 5N IS TO CONSULT.
[2020-06-02 18:06] LABS: SYPHILIS AB Non Reactive (Non Reactive)
[2020-06-02 22:06] LABS: GLYCOHEMOGLOBIN (HGB A1C) 5.6 % (4.8-5.6)
--- NOTE | 2020-06-03 03:41 | NUR ---
ASSUMED CARE OF PT AT 1900. PT IS A/O X2 AND IS PLEASANT AND COOPERATIVE. ROOM AIR. NO C/O PAIN OR DISCOMFORT. BATH GIVEN AND HAIR SHAMPOO COMPLETED. INCONTINENT X1. VOIDED X2 AND WAS ABLE TO TRANSFER TO [facility] WITH ASSIST X1. AT START OF SHIFT PT APPEARED TO BE DROWSY AND WAS LAYING SIDEWAYS IN THE BED. WOKE PT, REPOSITIONED AND SET UP DINNER MEAL. PT ATE 100%, ATE SNACKS FAMILY BROUGHT, AND REQUESTED A DIET SODA. MUCH MORE ALERT THIS EVENING THAN WHAT WAS REPORTED ON DAYS. AT THIS TIME PT IS LYING IN HER BED WITH HOB ELEVATED AND APPEARS TO BE WATCHING TV. FALL PRECAUTIONS ARE IMPLEMENTED AND CALL LIGHT IS WITHIN REACH. WILL CONTINUE TO MONITOR.
[2020-06-03 04:44] VITALS: BP 102/57
--- NOTE | 2020-06-03 07:39 | NUR ---
PROGRESS PT AGREEABLE WITH CARES LAST NIGHT CALM AND SLEPT TIL THIS AM THEN WASA PLEASANT AND COOPERATIVE.
[2020-06-03 08:31] VITALS: BP 105/62
--- NOTE | 2020-06-03 10:22 | NUR ---
ASSUMED PT CARE THIS AM. PT VSS, A&OX2. PT CALM AND COOPERATIVE WITH STAFF. FALL PRECAUTIONS IN PLACE. PT REPOSITIONS IN THE BED AND CHAIR. REFUSING SCD'S. MEDS TAKEN WITHOUT COMPLAINT.
--- NOTE | 2020-06-03 15:48 | NUR ---
5N ASSESSED PT AND INDICATED THAT SHE ISN'T APPROPRIATE FOR ACUTE REHAB. CM SPOKE WITH PT'S SPOUSE AND HE IS RECEPTIVE TO SKILLED POST ACUTE CARE STAY. ASKED THAT REFERRALS BE SENT TO [facility], [facility], AND [facility]. 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 SPOUSE INDICATED THAT PT'S INSURANCE WILL CHANGE TO [employer] OF JUN 06. REFERRALS TO BE SENT. COVID TEST DONE TUESDAY EVENING. CM TO [facility] INDICATED WITH DC PLANNING.
[2020-06-04 07:44] VITALS: BP 134/69
--- NOTE | 2020-06-04 08:54 | NUR ---
progress pt up with assist pleasant and cooperative, slept all noc continue poc. p
--- NOTE | 2020-06-04 10:00 | NUR ---
PT SITTING UP IN CHAIR WITH CHAIR ALARM. PT STATED SHE DIDN'T HAVE ANY PAIN UNLESS GETTING UP. PHYSICAL THERAPY WORKING WITH HER AT THIS TIME. 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 PT VERY INDEPEDANT WITH HER AMBULATION. PT SEEMS LIKE SHE DOESN'T WANT MUCH HELP. PT HAS WOUND TO LEFT DE LA PAZ THAT IS COVERED WITH FOAM DRESSING AND KERLEX. PT BM WAS YESTERDAY. PT GOING TO DISCHARGE TO SKILLED. PT DOSEN'T LIKE HER FINGER POKED FOR ACCUCHECKS.
--- NOTE | 2020-06-04 14:59 | NUR ---
REFERRAL FAXED TO [facility] SPOKE WITH ANTHONY IN ADM SHE RECEIVED AND WILL ACCEPT SHE WILL SUBMIT FOR AUTH DA-124 AND COVID RESULTS FAXED WITH REFERRAL.
--- NOTE | 2020-06-04 15:32 | NUR ---
Staying Machine Operator visited with the pt and her spouse at bedside to discuss dc planning efforts. [facility] has accepted the pt pending insurance auth and they have a bed today. [facility] can also accept. [facility] can not accept d/t ins change. [facility] has submitted for insurance auth. Pt had good questions and able to participate in converstation. Spouse's cell number is [phone] if he is not here. Both are aware that pt may dc to snf rehab this evening if ins auth obtained. DC orders will need to be faxed to [phone] and report called to [phone]. The unit RN and the attending are aware and agreeable. Chart copy is in progress. Covid neg test and 124c faxed to [facility] per the dc naval surface fire support planner. Both are aware of visitor restrictions at the [facility]. Private duty listing provided to spouse for f/u once she is closer to dcing home. They are open to HH as well once she has completed her SNF stay. Will follow.
[2020-06-04 15:36] VITALS: BP 89/53
--- NOTE | 2020-06-04 15:36 | NUR ---
PT IN BED. PT AT BEDSIDE. HE IS LOOKING AT [facility] AND WOULD LIKE TO GO TO [facility], WILL LET SW KNOW OF CHANGE. PT SEEMS CALM AND NO BEHAVIORS NOTED.
[2020-06-04] MEDS ORDERED: METOPROLOL SUCC25 M1 PO (17:37)
[2020-06-04] MEDS ORDERED: ASPIR 8181 MG PO (17:37)
[2020-06-04] MEDS ORDERED: METFORMIN HCL500 MG PO (17:37)
[2020-06-04] MEDS ORDERED: GABAPENTIN 100100 MG PO (17:37)
[2020-06-04] MEDS ORDERED: LIPITOR 20 MG T20 M1 PO (17:37)
[2020-06-04] MEDS ORDERED: LISINOPRIL2.5 MG PO (17:37)
[2020-06-04] MEDS ORDERED: CLOPIDOGREL75 MG PO (17:37)
[2020-06-04] MEDS ORDERED: PRENATAL PO (17:37)
[2020-06-04] MEDS ORDERED: PEPCID20 MG PO (17:37)
[2020-06-04] MEDS ORDERED: MIRALAX17 GM PO (17:37)
[2020-06-04] MEDS ORDERED: NAMENDA 5 MG TAB5 M1 PO (17:37)
[2020-06-04] MEDS ORDERED: ACETAMINOPHEN325 M1 PO (17:37)
[2020-06-04] MEDS ORDERED: METHADONE HCL 110 MG PO (17:37)
[2020-06-04] MEDS ORDERED: OLANZAPINE2.5 MG PO (17:37)
[2020-06-04 20:13] VITALS: BP 132/96
[2020-06-04 20:26] VITALS: BP 86/54
[2020-06-05 04:01] VITALS: BP 102/60
[2020-06-05 08:14] VITALS: BP 67/21
[2020-06-05 08:15] VITALS: BP 87/46
[2020-06-05 09:27] VITALS: BP 80/50
[2020-06-05] MEDS ORDERED: METOPROLOL SUCC25 M1 PO (13:08)
--- NOTE | 2020-06-05 13:43 | NUR ---
Awaiting authorization to either TASNEEM JOHNSON or Avinash rico [employer]. Once auth obtained will contact spouse at [phone].
--- NOTE | 2020-06-05 14:36 | NUR ---
[facility] has accepted and both the DA124 and most recent Covid test have been sent to [facility]. Per Makenzie at [phone] still awaiting authorization. Of note: JEANETTE sent most recent PT/OT notes as [employer] is primary until midnight on 06-05-2020 and patient becomes effective with [employer] at 1201 AM on 06-06-2020. [facility] is trying for SNF auth with both. Makenzie will call and [facility] if auth is obtained after today to set up transport.
--- NOTE | 2020-06-05 16:31 | NUR ---
FAXED CLINICAL UPDATE TODAY'S THERAPY NOTES TO ABDIEL OF OP RECEIVED CONFIRMATION AND LEFT MSG WITH ANTHONY IN ADM WTG ON AUTH.
--- NOTE | 2020-06-05 16:39 | NUR ---
PT ACCEPTED AT [facility] FOR SKILLED STAY IF PT DISCHARGES OVER WEEKEND FAXED DC ORDERS/SUMMARY TO FAX: [phone] AND CALL TO SET UP TRANSPORT [phone] AND TO GIVE REPORT.
[2020-06-05 19:49] VITALS: BP 75/55
--- NOTE | 2020-06-05 20:20 | NUR ---
ASSUMED CARE OF THE PATIENT AT 0715, PATIENT ALERT WITH CONFUSION. PATIENT DENIES PAIN AT START OF THE SHIFT, SHE RECEIVED SCHEDULED METHADONE, C/O SHOULDER PAIN. PATIENT SLEPT MOST OF THE MORNING AND DURING LUNCH. AT BEDSIDE MOST OF THE DAY. PATIENT READY FOR DISCHARGE BUT STILL WAITING ON INSURANCE AUTH. SPOKE WITH CHRISTOPHE/DIRECTOR WHO STATES PATIENT WAITING ON INS. AUTH MAY NOT D/C UNTIL TUESDAY, THIS RN NOTIFIED DR BURROWS OF WHAT JED SAID. REPORT GIVEN TO PAU. WILL CONTINUE TO MONITOR. B/P LOW THIS SHIFT, THIS RN NOTIFIED DR BURROWS WHO STATED HE MADE ADJUSTMENTS ON DISCHARGE MEDS, AM B/P MEDS HELD DUE TO LOW B/P. NOTIFIED DR BURROWS OF PATIENT NOT URINATING THIS SHIFT, BLADDER SCAN DONE [id number], DR BURROWS STATES IF OVER 350 STARIGHT CATH. PAU/ELVIS WILL DO BLADDER SCAN NIGHTSHIFT. REPORT GIVEN TO PAU/ELVIS.
[2020-06-06 03:47] VITALS: BP 115/50
--- NOTE | 2020-06-06 06:22 | NUR ---
Pt. still not voided during the shift and bladder scanned at 375ml. Yohannes [employer]AN[employer] notified and order to st. cath one time.
[2020-06-06 08:00] VITALS: BP 104/57
--- NOTE | 2020-06-06 15:11 | NUR ---
ASSUMED CARE OF PT AT 0700. PT ALERT AND ORIENTED TO SELF AND SITUATION. IN NO ACUTE DISTRESS. BREATHING COMFORTABLY ON ROOM AIR. VOICING NO COMPLAINS. UP W/ WALKER AND SBA. TRANSPORTED TO SKILLED FACILITY AT APPROX 1500. ALL BELONGINGS WITH PATIENT. REPORT GIVEN TO RECEIVING NURSE, EBONY.
== END 2020-06-06 15:04 | DRG 64 ==
LOC: ER 19:03 → EROBS 22:11 → 4W 22:11
PROVIDERS: Emergency Medicine; Hospitalist; Internal Medicine; Nurse Practitioner Family; Psychiatry & Neurology Neurology; Psychiatry & Neurology Neuromuscular Medicine; ADMIT Internal Medicine; ATTEND Internal Medicine
DX: I63.89 Other cerebral infarction (principal); I16.0 Hypertensive urgency; G93.41 Metabolic encephalopathy; L97.929 Non-pressure chronic ulcer of unspecified part of left lower leg with unspecified severity; E11.622 Type 2 diabetes mellitus with other skin ulcer; R77.8 Other specified abnormalities of plasma proteins; E87.6 Hypokalemia; E11.42 Type 2 diabetes mellitus with diabetic polyneuropathy; I25.10 Atherosclerotic heart disease of native coronary artery without angina pectoris; Z96.643 Presence of artificial hip joint, bilateral; M19.90 Unspecified osteoarthritis, unspecified site; G71.00 Muscular dystrophy, unspecified; M54.5 Low back pain; G89.4 Chronic pain syndrome; M06.9 Rheumatoid arthritis, unspecified; D64.9 Anemia, unspecified; I10 Essential (primary) hypertension; R41.0 Disorientation, unspecified; I35.0 Nonrheumatic aortic (valve) stenosis; F22 Delusional disorders; I87.2 Venous insufficiency (chronic) (peripheral); Z20.822 Contact with and (suspected) exposure to COVID-19; Z90.49 Acquired absence of other specified parts of digestive tract; Z90.722 Acquired absence of ovaries, bilateral; Z88.8 Allergy status to other drugs, medicaments and biological substances; Z88.1 Allergy status to other antibiotic agents; Z91.041 Radiographic dye allergy status; Z90.710 Acquired absence of both cervix and uterus; Z79.82 Long term (current) use of aspirin; Z79.899 Other long term (current) drug therapy
CPT/HCPCS: 10040; 10045